=== PATIENT | male | born 1945 | race Caucasian/White ===

== ENCOUNTER 2017-11-02 10:26 | Observation (INO) | payer OTHER ==
[~2017-11-02] VITALS: Ht 172.7 cm; Wt 78.5 kg
[~2017-11-02 10:26] MED LIST: ADULT LOW DOSE81 M1 PO; ADVIL200 MG PO; ASPIR-TRIN325 M1 PO; CALTRATE 600600 MG PO; CARDURA4 MG PO; CATAPRES0.1 MG PO; CLARITIN10 MG PO; COREG25 M1 PO; CRESTOR40 MG PO; Coreg PO; DAILY VITAMIN1 EAC8 PO; Ecotrin PO; FISH OIL 1,0001 EAC7 PO; FLAXSEED340 GM PO; LEVAQUIN750 MG PO; LIPITOR80 MG; LIPITOR80 MG PO; Lasix PO; METAMUCIL0.52 GM PO; PLAVIX75 MG PO; PRILOSEC20 MG PO; TEKTURNA150 MG PO; VITAMIN B-125000 MCG SL; VITAMIN C1000 M1 PO; VITAMIN D2000 INTUN PO; VITAMIN E1000 UNIT PO; Vytorin 10/80 PO; ZANTAC150 MG PO
[2017-11-02 11:20] LABS: HEMATOCRIT 40.8 % (38.0-50.0); HEMOGLOBIN 13.8 G/DL (12.5-16.6); MCH 30.1 PG (29.0-34.0); MCHC 33.8 G/DL (30.0-36.0); MCV 88.9 FL (86-99); PLATELET COUNT 219 K/uL (156-360); RBC DIS.WIDTH-CV 12.5 % (11.8-14.6); RBC DIS.WIDTH-SD 41.1 % (39-53); RED BLOOD COUNT 4.59 M/uL (4.00-5.50); WHITE BLOOD COUNT 7.4 K/uL (4.1-10.2)
[2017-11-02 11:35] LABS: CHLORIDE 111 mEq/L (99-109); POTASSIUM 4.5 mEq/L (3.7-5.4); SODIUM 139 mEq/L (136-147)
[2017-11-02 11:36] LABS: GLUCOSE 111 mg/dL (70-99)
[2017-11-02 11:40] LABS: GFR ESTIMATE (CALCULATED) > 59 mL/min/ (58.99-99999)
[2017-11-02 11:41] LABS: TROP-I INTERPRETATION NEGATIVE; TROPONIN-I 0.02 ng/mL (0.0-0.30); UREA NITROGEN (BUN) 21 mg/dL (9-23)
[2017-11-02 13:02] LABS: LIPASE 24 U/L (1.0-51.0)
[2017-11-02 18:23] LABS: TROP-I INTERPRETATION NEGATIVE; TROPONIN-I 0.01 ng/mL (0.0-0.30)
[2017-11-02] MEDS ORDERED: DOXAZOSIN MESYLA4 MG PO (18:44)
[2017-11-02] MEDS ORDERED: MONTELUKAST SOD10 MG PO (18:45)
[2017-11-02] MEDS ORDERED: INCRUSE ELLI62.5 MCG IH (18:46)
[2017-11-02] MEDS ORDERED: CARVEDILOL6.25 MG PO (18:48)
[2017-11-02] MEDS ORDERED: ADALAT CC 30 MG30 MG PO (18:48)
[2017-11-02 23:33] VITALS: BP 151/87
[2017-11-03] VITALS (8 sets, daily range): BP systolic 155–194; BP diastolic 70–84
[2017-11-03 01:33] LABS: TROP-I INTERPRETATION NEGATIVE; TROPONIN-I < 0.01 ng/mL (0.0-0.30)
[2017-11-03 06:15] LABS: HEMATOCRIT 40.1 % (38.0-50.0); MCH 29.3 PG (29.0-34.0); MCHC 32.4 G/DL (30.0-36.0); MCV 90.5 FL (86-99); PLATELET COUNT 169 K/uL (156-360); RBC DIS.WIDTH-CV 12.6 % (11.8-14.6); RBC DIS.WIDTH-SD 41.5 % (39-53); RED BLOOD COUNT 4.43 M/uL (4.00-5.50); WHITE BLOOD COUNT 6.1 K/uL (4.1-10.2)
[2017-11-03 06:34] LABS: TROP-I INTERPRETATION NEGATIVE; TROPONIN-I < 0.01 ng/mL (0.0-0.30)
[2017-11-03 06:41] LABS: CHLORIDE 109 MEQ/L (99-109); CREATININE 0.9 MG/DL (0.6-1.3); GFR ESTIMATE (CALCULATED) > 59 mL/min/ (58.99-99999); POTASSIUM 4.3 MEQ/L (3.7-5.4); SODIUM 139 MEQ/L (136-147); UREA NITROGEN (BUN) 20 mg/dL (9-23)
[2017-11-03 06:42] LABS: GLUCOSE 78 mg/dL (70-99)
[2017-11-04 04:23] VITALS: BP 146/65
[2017-11-04 08:02] VITALS: BP 143/68
[2017-11-04 15:32] VITALS: BP 191/81
[2017-11-04] MEDS ORDERED: CARVEDILOL12.5 MG PO (15:46)
== END 2017-11-04 16:10 | disposition home or self-care (01) ==
LOC: EME 10:26 → EDOF 17:57 → 5WEST 17:57 → ENRESERV 18:12 → 5WEST 22:25
PROVIDERS: Hospitalist; Nurse Practitioner Family
DX: R07.9 Chest pain, unspecified (principal); I25.10 Atherosclerotic heart disease of native coronary artery without angina pectoris; I10 Essential (primary) hypertension; E78.5 Hyperlipidemia, unspecified; R06.02 Shortness of breath; K21.9 Gastro-esophageal reflux disease without esophagitis; I25.2 Old myocardial infarction; Z95.5 Presence of coronary angioplasty implant and graft; Z87.891 Personal history of nicotine dependence; Z79.02 Long term (current) use of antithrombotics/antiplatelets; Z79.82 Long term (current) use of aspirin; Z85.118 Personal history of other malignant neoplasm of bronchus and lung; Z85.528 Personal history of other malignant neoplasm of kidney; Z90.5 Acquired absence of kidney; I73.9 Peripheral vascular disease, unspecified; Z88.0 Allergy status to penicillin; Z98.890 Other specified postprocedural states; J43.2 Centrilobular emphysema; D68.9 Coagulation defect, unspecified; Z92.3 Personal history of irradiation; Z92.21 Personal history of antineoplastic chemotherapy
CPT/HCPCS: 71046; 71250; 78452; 78582; 80048; 83690; 84484; 85027; 85379; 93005; 93017; 99281; 99285; A9500; A9539; A9540; G0378; J1644; J1885; J2270; J2785

== ENCOUNTER 2017-11-13 09:54 | Day surgery (SDC) | payer OTHER ==
[~2017-11-13] VITALS: Ht 172.7 cm; Wt 76.0 kg
[~2017-11-13 09:54] MED LIST changes: +ADALAT CC 30 MG30 MG PO; +CARVEDILOL12.5 MG PO; +CARVEDILOL6.25 MG PO; +DOXAZOSIN MESYLA4 MG PO; +INCRUSE ELLI62.5 MCG IH; +MONTELUKAST SOD10 MG PO; +OMEPRAZOLE40 M1 PO
[2017-11-13 18:40] VITALS: BP 170/58
== END 2017-11-13 22:58 | disposition home or self-care (01) ==
LOC: CATH 09:54
DX: I25.119 Atherosclerotic heart disease of native coronary artery with unspecified angina pectoris (principal); T82.858A Stenosis of other vascular prosthetic devices, implants and grafts, initial encounter; I25.82 Chronic total occlusion of coronary artery; I10 Essential (primary) hypertension; E78.5 Hyperlipidemia, unspecified; I73.9 Peripheral vascular disease, unspecified; I65.23 Occlusion and stenosis of bilateral carotid arteries; Z95.1 Presence of aortocoronary bypass graft; Z87.891 Personal history of nicotine dependence; Z85.118 Personal history of other malignant neoplasm of bronchus and lung; Z92.21 Personal history of antineoplastic chemotherapy; Z92.3 Personal history of irradiation; Z86.73 Personal history of transient ischemic attack (TIA), and cerebral infarction without residual deficits; Z79.02 Long term (current) use of antithrombotics/antiplatelets; Z85.528 Personal history of other malignant neoplasm of kidney; Z90.5 Acquired absence of kidney
CPT/HCPCS: 85347; C1769; C1894; J0153; J0461; J1644; J2250; J3010; J7040